=== PATIENT | male | born 1995 | race Caucasian/White ===

== ENCOUNTER 2017-03-22 11:35 | Emergency (ER) | payer BC ==
--- NOTE | 2017-03-22 13:38 | UC ---
FLU HPI - HPI Summary HPI Summary: frequent issues with tonsillitis, has had a worsening sore throat for 2 days- has been advised by pcp to seek ENT evaluation which he is planning to do when he returns to his home town after the semester has completed - History of Current Complaint Chief Complaint: UCRespiratory Stated Complaint: SORE THROAT Time Seen by Provider: 03/22/17 13:15 Hx Obtained From: Patient Onset/Duration: Gradual Onset, Lasting Days - 2, Still Present Severity Currently: Moderate Severity Initially: Moderate Pain Intensity: 5 Pain Scale Used: 0-10 Numeric Associated Signs & Symptoms: Positive: Sore Throat, Nasal Congestion - Allergy/Home Medications Allergies/Adverse Reactions: Allergies Allergy/AdvReac Type Severity Reaction Status Date / Time MS Sulfa Antibiotics Allergy See Comment Verified 03/22/17 12:41 PMH/Surg Hx/FS Hx/Imm Hx Previously Healthy: Yes - Surgical History Surgical History: None - Family History Known Family History: Positive: None - Social History Occupation: Student Lives: [place] Alcohol Use: Occasionally Substance Use Type: None Smoking Status (MU): Never Smoked Tobacco Review of Systems Constitutional: Negative Skin: Negative Eyes: Negative ENT: Sore Throat, Nasal Discharge Respiratory: Negative Cardiovascular: Negative Gastrointestinal: Negative Genitourinary: Negative Motor: Negative Neurovascular: Negative Musculoskeletal: Negative Neurological: Headache Psychological: Negative Is Patient Immunocompromised?: No All Other Systems Reviewed And Are Negative: Yes Physical Exam Triage Information Reviewed: Yes Appearance: Well-Appearing, No Pain Distress, Well-Nourished Vital Signs: Initial Vital Signs Temp 98.3 F 03/22/17 12:33 Pulse 96 03/22/17 12:33 BP 141/63 03/22/17 12:33 Pulse Ox 100 03/22/17 12:33 Vital Signs Reviewed: Yes Eye Exam: Normal Eyes: Positive: Conjunctiva Clear ENT Exam: Normal ENT: Positive: Normal ENT inspection, Hearing grossly normal, Pharynx normal, TMs normal, Tonsillar swelling, Uvula midline. Negative: Nasal congestion, Nasal drainage, Trismus, Muffled voice, Hoarse voice, Dental tenderness, Sinus tenderness Dental Exam: Normal Neck exam: Normal Neck: Positive: Supple, Nontender, No Lymphadenopathy Respiratory Exam: Normal Respiratory: Positive: Chest non-tender, Lungs clear, Normal breath sounds, No respiratory distress, No accessory muscle use Cardiovascular Exam: Normal Cardiovascular: Positive: RRR, No Murmur, Pulses Normal, Brisk Capillary Refill Musculoskeletal Exam: Normal Musculoskeletal: Positive: Strength Intact, ROM Intact, No Edema Neurological Exam: Normal Neurological: Positive: Alert, Muscle Tone Normal Psychological Exam: Normal Skin Exam: Normal Diagnostics - Laboratory Diagnostic Studies Completed/Ordered: RST (-) Influenza A/B (-) Flu Course/Dx - Course Course Of Treatment: Patient encouraged to not use antibiodics unless symptoms worsen-Patient instructed to start Steroids [facility] - Differential Dx/Diagnosis Provider Diagnoses: Tonsillitis Discharge - Discharge Plan Condition: Stable Disposition: HOME Prescriptions: Clindamycin Cap(NF) [Clindamycin Cap 300 mg Cap(NF)] 300 mg PO Q6H #28 cap predniSONE TAB* [Deltasone TAB*] 50 mg PO DAILY #4 tab Patient Education Materials: Probiotic (By mouth), Tonsillitis (ED) Referrals: [facility] [Outside] - If Needed
== END 2017-03-22 14:10 | disposition home or self-care (01) ==
LOC: UCCORT 11:35
DX: J03.90 Acute tonsillitis, unspecified (principal); Z72.89 Other problems related to lifestyle
CPT/HCPCS: 87502; 87651; 99202; G0463

== ENCOUNTER 2017-10-21 14:39 | Emergency (ER) | payer BC, OTHER ==
[2017-10-21 15:00] VITALS: BP 156/67
--- NOTE | 2017-10-21 15:09 | UC ---
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 He has a history of chronic recurring tonsillitis is scheduled for tonsillectomy over [employer] break. He is from [place]. He is a nonsmoker and has not experienced any fever shakes or chills. He has no other symptoms to include nasal congestion or cough. He previously has been on antibiotics, steroids for this by his ear nose and throat surgeon. - History of Current Complaint Chief Complaint: UCGeneralIllness Stated Complaint: SORE THROAT Time Seen by Provider: 10/21/17 14:59 Hx Obtained From: Patient Pain Intensity: 5 - Allergies/Home Medications Allergies/Adverse Reactions: Allergies Allergy/AdvReac Type Severity Reaction Status Date / Time Sulfa (Sulfonamide Allergy Intermediate allergic Verified 10/21/17 15:01 Antibiotics) as PMH/Surg Hx/FS Hx/Imm Hx - Additional Past Medical History Additional PMH: Recurrent tonsillitis Previously Healthy: Yes - Surgical History Surgical History: None - Family History Known Family History: Positive: Other - Reviewed and negative - Social History Occupation: Student Alcohol Use: Occasionally Substance Use Type: None Smoking Status (MU): Never Smoked Tobacco Review of Systems Constitutional: Negative Skin: Negative ENT: Sore Throat, Other - Denies congestion, sinus pain, coryza Respiratory: Other - Denies cough Cardiovascular: Negative All Other Systems Reviewed And Are Negative: Yes Physical Exam Triage Information Reviewed: Yes Appearance: Well-Appearing, No Pain Distress Vital Signs: Initial Vital Signs Temp 97.2 F 10/21/17 14:56 Pulse 59 10/21/17 14:56 Resp 18 10/21/17 14:56 BP 156/67 10/21/17 14:56 Pulse Ox 100 10/21/17 14:56 Eyes: Positive: Conjunctiva Clear ENT: Positive: TMs normal, Tonsillar swelling, Other - Hoarse voice. Negative: Nasal drainage, Tonsillar exudate Neck: Positive: Nontender, No Lymphadenopathy Respiratory: Positive: Chest non-tender, Lungs clear Cardiovascular: Positive: RRR Musculoskeletal Exam: Normal Neurological: Positive: Alert Skin Exam: Normal Diagnostics - Laboratory Diagnostic Studies Completed/Ordered: Rapid Strep: NEG Throat Pain/Nasal Course/Dx - Course Course Of Treatment: Rapid strep neg. Tx with steroids. - Differential Dx/Diagnosis Differential Diagnosis/HQI/PQRI: Other - Viral versus bacterial tonsillitis Provider Diagnoses: Acute tonsillitis Discharge - Sign-Out/Discharge Documenting (check all that apply): Patient Departure All imaging exams completed and their final reports reviewed: No - Discharge Plan Condition: Improved Disposition: HOME Prescriptions: Dexamethasone TAB* [Decadron TAB*] 8 mg PO DAILY #8 tab Patient Education Materials: Tonsillitis (ED) Referrals: [facility] [Outside] Additional Instructions: Return with fever, unable to swallow, worse, new symptoms or other concerns. Follow-up with your Ear Nose and throat surgeon as scheduled for tonsillectomy. - Billing Disposition and Condition Condition: IMPROVED Disposition: Home - Attestation Statements Document Initiated by Balbir: Marci
--- NOTE | 2017-10-22 06:49 | UC ---
Discharge - Sign-Out/Discharge Documenting (check all that apply): Post-Discharge Follow Up All imaging exams completed and their final reports reviewed: No Studies - Discharge Plan Condition: Improved Disposition: HOME Prescriptions: Dexamethasone TAB* [Decadron TAB*] 8 mg PO DAILY #8 tab Patient Education Materials: Tonsillitis (ED) Referrals: [facility] [Outside] Additional Instructions: Return with fever, unable to swallow, worse, new symptoms or other concerns. Follow-up with your Ear Nose and throat surgeon as scheduled for tonsillectomy. - Billing Disposition and Condition Condition: IMPROVED Disposition: Home
== END 2017-10-21 15:20 | disposition home or self-care (01) ==
LOC: UCCORT 14:39
DX: J03.90 Acute tonsillitis, unspecified (principal); Z88.1 Allergy status to other antibiotic agents
CPT/HCPCS: 87651; 99212; G0463

== ENCOUNTER 2018-04-28 07:09 | Emergency (ER) | payer OTHER ==
[2018-04-28 07:19] VITALS: BP 146/72
--- NOTE | 2018-04-28 07:29 | UC ---
General HPI - HPI Summary HPI Summary: States he has had a head cold for the past few days. This AM he woke with his left ear ringing and painful. No fevers. No cough. +congestion. No N/V/D. Good PO. Is trying sudafed OTC but does not seem to work. PMHx; reviewed Meds : Reviewed. Never had issues with elevated BP in the past. - History of Current Complaint Chief Complaint: UCEar Stated Complaint: CONGESTION LEFT EAR Time Seen by Provider: 04/28/18 07:21 Pain Intensity: 6 - Allergy/Home Medications Allergies/Adverse Reactions: Allergies Allergy/AdvReac Type Severity Reaction Status Date / Time Sulfa (Sulfonamide Allergy Intermediate allergic Verified 04/28/18 07:16 Antibiotics) as PMH/Surg Hx/FS Hx/Imm Hx Previously Healthy: Yes - Surgical History Surgical History: None - Family History Known Family History: Positive: Other - Reviewed and negative - Social History Alcohol Use: Occasionally Substance Use Type: None Smoking Status (MU): Never Smoked Tobacco Review of Systems All Other Systems Reviewed And Are Negative: Yes ENT: Positive: Ear Ache, Nasal Discharge, Sinus Congestion Physical Exam Triage Information Reviewed: Yes Appearance: Well-Appearing Vital Signs: Initial Vital Signs Temp 97.6 F 04/28/18 07:16 Pulse 72 04/28/18 07:16 Resp 16 04/28/18 07:16 BP 146/72 04/28/18 07:16 Pulse Ox 100 04/28/18 07:16 Vital Signs Reviewed: Yes ENT: Positive: Pharynx normal, Nasal congestion, Other - RIght TM: clear fluid mildly erythematous Left TM: bulging clear fluid, erythematous Neck exam: Normal Neck: Positive: Supple Respiratory: Positive: Lungs clear, Normal breath sounds Cardiovascular: Positive: RRR, No Murmur Course/Dx - Course Course Of Treatment: This is a healthy 22 yr old c/o left ear pain in the setting of a URI. Dx: Viral syndrome. No evidence of otitis media. Plan. Recommend Flonase as directed. Recommend continuing decongestant such as sudafed. Would also start taking an antihistamine such as zyrtec. Ibuprofen as needed for pain. Recommend follow up with a PCP regarding your elevated blood pressure. If symptoms persist or worsen, contact your PCP for further evaluation or return to the ER - Diagnoses Provider Diagnosis: Viral syndrome Discharge - Sign-Out/Discharge Documenting (check all that apply): Patient Departure All imaging exams completed and their final reports reviewed: No Studies - Discharge Plan Condition: Good Disposition: HOME Prescriptions: Fluticasone NASAL SPRAY 50MCG* [Flonase NASAL SPRAY 50MCG*] 2 spray BOTH NARES DAILY #1 btl Patient Education Materials: Viral Syndrome (ED) Referrals: No Primary Care Phys,NOPCP [Primary Care Provider] - Additional Instructions: Recommend Flonase as directed Recommend continuing decongestant such as sudafed Would also start taking an antihistamine such as zyrtec Ibuprofen as needed for pain Recommend follow up with a PCP regarding your elevated blood pressure If symptoms persist or worsen, contact your PCP for further evaluation or return to the ER - Billing Disposition and Condition Condition: GOOD Disposition: Home
== END 2018-04-28 07:36 | disposition home or self-care (01) ==
LOC: UCCORT 07:09
DX: B34.9 Viral infection, unspecified (principal); H92.02 Otalgia, left ear; H93.8X2 Other specified disorders of left ear; R09.81 Nasal congestion; R09.89 Other specified symptoms and signs involving the circulatory and respiratory systems; H73.893 Other specified disorders of tympanic membrane, bilateral; Z88.2 Allergy status to sulfonamides
CPT/HCPCS: 99212; G0463